=== PATIENT | female | born 1940 | race Caucasian/White ===

== ENCOUNTER 2016-11-25 06:26 | Emergency (ER) | payer MEDICARE, OTHER ==
[2016-11-25 06:32] VITALS: BP 150/99
--- NOTE | 2016-11-25 06:40 | EDM.PDOC ---
<Pasquale Hernandez - Last Filed: 11/25/16 06:50> ED HPI GENERAL MEDICAL PROBLEM - General Chief Complaint: Respiratory Problem Stated Complaint: IN BY AMBULANCE Time Seen by Provider: 11/25/16 06:35 Source of Information: Reports: Patient History Limitations: Reports: No Limitations - History of Present Illness INITIAL COMMENTS - FREE TEXT/NARRATIVE: sudden onset SOB @ midnight was awake at the time riding in train heading to [place]. denies prior h/o, no SD/COPD/ASTHMA. denies CP, no pain anywhere just SOB. takes BP Rx Headache Pain Score (Numeric/FACES): 8 - Related Data Allergies Allergy/AdvReac Type Severity Reaction Status Date / Time cefaclor [From [facility]] Allergy Rash Verified 11/25/16 06:36 codeine Allergy Vomiting Verified 11/25/16 06:36 Penicillins Allergy Rash Verified 11/25/16 06:36 Home Meds: Home Meds Aspirin [Ecotrin] 81 mg PO DAILY 11/25/16 [History] Calcium Carbonate [Calcium] 1,200 mg PO DAILY 11/25/16 [History] Cholecalciferol (Vitamin D3) [Vitamin D] 5,000 unit PO DAILY 11/25/16 [History] Fesoterodine Fumarate [Toviaz] 4 mg PO DAILY 11/25/16 [History] Fexofenadine [Ynes] 60 mg PO DAILY PRN 11/25/16 [History] Lisinopril [Zestril] 10 mg PO QPM 11/25/16 [History] Lisinopril [Zestril] 20 mg PO QAM 11/25/16 [History] Lutein/Minerals/Vit A,C & E [Ocuvite] 1 each PO DAILY 11/25/16 [History] Melatonin 10 mg PO BEDTIME 11/25/16 [History] Metoprolol Succinate 200 mg PO DAILY 11/25/16 [History] amLODIPine Besylate [Norvasc] 10 mg PO BEDTIME 11/25/16 [History] atorvaSTATin [Lipitor] 10 mg PO DAILY 11/25/16 [History] ED ROS GENERAL - Review of Systems Review Of Systems: ROS reveals no pertinent complaints other than HPI. ED EXAM, GENERAL - Physical Exam Exam: See Below Exam Limited By: No Limitations General Appearance: Alert, WD/WN, Anxious, Mild Distress Ears: Hearing Grossly Normal Throat/Mouth: Normal Voice, No Airway Compromise Head: Atraumatic Neck: Non-Tender, Full Range of Motion Respiratory/Chest: Lungs Clear, Accessory Muscle Use, Other (bilat subcostal) Cardiovascular: Regular Rate, Rhythm GI/Abdominal: Soft, Non-Tender Extremities: Pedal Edema, Other (1+ bilat) Neurological: Alert, Oriented, Normal Cognition, Normal Gait, No Motor/Sensory Deficits Psychiatric: Anxious Skin Exam: Warm, Dry Lymphatic: No Adenopathy Course - Vital Signs Last Recorded V/S: Last Vital Signs Temp 36.6 C 11/25/16 06:30 Pulse 84 11/25/16 06:30 Resp 28 H 11/25/16 06:30 BP 150/99 H 11/25/16 06:30 Pulse Ox 90 L 11/25/16 06:30 - Orders/Labs/Meds Orders: Active Orders 24 hr Category Date Time Status EKG Documentation Completion [RC] STAT Care 11/25/16 06:36 Active Chest 1V Frontal [CR] Urgent Exams 11/25/16 06:36 Ordered Chest w Cont [CT] Urgent Exams 11/25/16 06:45 Ordered Head wo Cont [CT] Urgent Exams 11/25/16 07:22 Ordered CULTURE BLOOD [BC] Stat Lab 11/25/16 08:01 Received CULTURE BLOOD [BC] Stat Lab 11/25/16 08:12 Results DRUG SCREEN URINE BIORAD [URCHEM] Stat Lab 11/25/16 07:32 Uncollected URINALYSIS W/MICROSCOPIC [UA W/MICROSCOPIC] [URIN] Stat Lab 11/25/16 07:31 Uncollected Levofloxacin/Dextrose 5%-Water [Levaquin in D5W 500 MG/ Med 11/25/16 08:29 Active 100 ML] 500 mg Premix Bag 1 bag IV ONETIME Blood Culture x2 Reflex Set [OM.PC] Stat Oth 11/25/16 07:43 Ordered Medication Orders Levofloxacin/Dextrose 500 mg/ (Premix) 100 mls @ 100 mls/hr IV ONETIME ONE Stop: 11/25/16 09:28 Last Admin: 11/25/16 08:47 Dose: 100 mls/hr Labs: Laboratory Tests 11/25/16 11/25/16 11/25/16 Range/Units 06:36 06:36 06:36 WBC 14.6 H (5.0-10.0) 10^3/uL RBC 4.83 (4.2-5.4) 10^6/uL Hgb 14.9 (12.0-16.0) g/dL Hct 44.3 (37.0-47.0) % MCV 91.7 (80-100) fL MCH 30.8 (27.0-34.0) pg MCHC 33.6 (33.0-35.0) g/dL Plt Count 238 (150-450) 10^3/uL Neut % (Auto) 86.5 H (42.2-75.2) % Lymph % (Auto) 6.5 L (20.5-50.1) % [place] % (Auto) 6.4 (2-8) % Eos % (Auto) 0.4 L (1.0-3.0) % Baso % (Auto) 0.2 (0.0-1.0) % PT (9.0-12.0) SEC INR (0.9-1.2) APTT (22.0-34.0) SEC D-Dimer, Quantitative 161 (0-400) ng/mL Sodium 134 L (135-145) mmol/L Potassium 3.7 (3.6-5.0) mmol/L Chloride 101 (101-111) mmol/L Carbon Dioxide 23.0 (21.0-31.0) mmol/L Anion Gap 13.7 BUN 11 (7-18) mg/dL Creatinine 0.6 (0.6-1.3) mg/dL Est Cr Clr Drug Dosing 79.21 mL/min Estimated GFR (MDRD) > 60 BUN/Creatinine Ratio 18.33 Glucose 146 H (74-105) mg/dL Lactic Acid (0.5-2.2) mmol/L Calcium 8.6 (8.4-10.2) mg/dl Total Bilirubin 1.1 H (0.2-1.0) mg/dL AST 72 H (10-42) IU/L ALT 92 H (10-60) IU/L Alkaline Phosphatase 103 (42-121) IU/L Troponin I < 0.02 (0.00-0.02) ng/ml B-Natriuretic Peptide 587 H (0-100) pg/ml Total Protein 7.0 (6.7-8.2) g/dl Albumin 4.2 (3.2-5.5) g/dl Globulin 2.8 Albumin/Globulin Ratio 1.50 Amylase (28-100) U/L Lipase (22-51) U/L TSH, Ultra Sensitive (0.35-7.0) uIu/mL Salicylates Acetaminophen Ethyl Alcohol mg/dL 11/25/16 11/25/16 11/25/16 Range/Units 06:36 06:36 06:36 WBC (5.0-10.0) 10^3/uL RBC (4.2-5.4) 10^6/uL Hgb (12.0-16.0) g/dL Hct (37.0-47.0) % MCV (80-100) fL MCH (27.0-34.0) pg MCHC (33.0-35.0) g/dL Plt Count (150-450) 10^3/uL Neut % (Auto) (42.2-75.2) % Lymph % (Auto) (20.5-50.1) % [place] % (Auto) (2-8) % Eos % (Auto) (1.0-3.0) % Baso % (Auto) (0.0-1.0) % PT 9.9 (9.0-12.0) SEC INR 1.0 (0.9-1.2) APTT 27.5 (22.0-34.0) SEC D-Dimer, Quantitative (0-400) ng/mL Sodium (135-145) mmol/L Potassium (3.6-5.0) mmol/L Chloride (101-111) mmol/L Carbon Dioxide (21.0-31.0) mmol/L Anion Gap BUN (7-18) mg/dL Creatinine (0.6-1.3) mg/dL Est Cr Clr Drug Dosing mL/min Estimated GFR (MDRD) BUN/Creatinine Ratio Glucose (74-105) mg/dL Lactic Acid 1.3 (0.5-2.2) mmol/L Calcium (8.4-10.2) mg/dl Total Bilirubin (0.2-1.0) mg/dL AST (10-42) IU/L ALT (10-60) IU/L Alkaline Phosphatase (42-121) IU/L Troponin I (0.00-0.02) ng/ml B-Natriuretic Peptide (0-100) pg/ml Total Protein (6.7-8.2) g/dl Albumin (3.2-5.5) g/dl Globulin Albumin/Globulin Ratio Amylase 57 (28-100) U/L Lipase 22 (22-51) U/L TSH, Ultra Sensitive (0.35-7.0) uIu/mL Salicylates < 4 Acetaminophen < 10 Ethyl Alcohol 5 mg/dL 11/25/16 Range/Units 06:36 WBC (5.0-10.0) 10^3/uL RBC (4.2-5.4) 10^6/uL Hgb (12.0-16.0) g/dL Hct (37.0-47.0) % MCV (80-100) fL MCH (27.0-34.0) pg MCHC (33.0-35.0) g/dL Plt Count (150-450) 10^3/uL Neut % (Auto) (42.2-75.2) % Lymph % (Auto) (20.5-50.1) % [place] % (Auto) (2-8) % Eos % (Auto) (1.0-3.0) % Baso % (Auto) (0.0-1.0) % PT (9.0-12.0) SEC INR (0.9-1.2) APTT (22.0-34.0) SEC D-Dimer, Quantitative (0-400) ng/mL Sodium (135-145) mmol/L Potassium (3.6-5.0) mmol/L Chloride (101-111) mmol/L Carbon Dioxide (21.0-31.0) mmol/L Anion Gap BUN (7-18) mg/dL Creatinine (0.6-1.3) mg/dL Est Cr Clr Drug Dosing mL/min Estimated GFR (MDRD) BUN/Creatinine Ratio Glucose (74-105) mg/dL Lactic Acid (0.5-2.2) mmol/L Calcium (8.4-10.2) mg/dl Total Bilirubin (0.2-1.0) mg/dL AST (10-42) IU/L ALT (10-60) IU/L Alkaline Phosphatase (42-121) IU/L Troponin I (0.00-0.02) ng/ml B-Natriuretic Peptide (0-100) pg/ml Total Protein (6.7-8.2) g/dl Albumin (3.2-5.5) g/dl Globulin Albumin/Globulin Ratio Amylase (28-100) U/L Lipase (22-51) U/L TSH, Ultra Sensitive 3.14 (0.35-7.0) uIu/mL Salicylates Acetaminophen Ethyl Alcohol mg/dL Meds: Medications Generic Name Dose Route Start Last Admin Trade Name Freq PRN Reason Stop Dose Admin Levofloxacin/Dextrose 500 mg/ 100 mls @ 100 mls/hr 11/25/16 08:29 11/25/16 08 :47 Premix IV 11/25/16 09:28 100 mls/hr ONETIME ONE Administration Discontinued Medications Generic Name Dose Route Start Last Admin Trade Name Freq PRN Reason Stop Dose Admin Ibuprofen 600 mg 11/25/16 06:57 11/25/16 07:59 Motrin PO 11/25/16 06:58 600 mg ONETIME ONE Administration Iopamidol 100 ml 11/25/16 06:47 Isovue-370 (76%) IVPUSH 11/25/16 06:48 ONETIME ONE Ondansetron HCl 4 mg 11/25/16 07:22 11/25/16 07:25 Zofran IV 11/25/16 07:23 4 mg ONETIME ONE Administration Departure - Departure Disposition: Against Medical Advice 07 Clinical Impression: Pneumonia, Elevated liver function tests - Discharge Information Forms: ED Department Discharge Additional Instructions: Your evaluation today has shown compromise of your lungs and you have low oxygenation, you have pneumonia requiring admission to the hospital. You have refused admission to the hospital. You are at risk for progressive hypoxia, respiratory compromise, respiratory arrest, cardiac arrest, and disability. You have been given an antibiotic intravenously Levaquin 500mg one time dose in the emergency department, and a presciption for Levaquin 500mg one pill a day for seven days to begin tomorrow. Advise you seek emergent medical attention if you are progressively short of breath, having chest pain, or concerns. Advise you see your provider as soon as possible. Your liver function tests were elevated on lab today. This may be due to the Lipitor you are taking. Advise discussing with your provider this issue as soon as possible to consider discontinuing this medicine and following your liver functions over time. - My Orders Last 24 Hours: My Active Orders 11/25/16 07:22 Head wo Cont [CT] Urgent 11/25/16 07:31 URINALYSIS W/MICROSCOPIC [UA W/MICROSCOPIC] [URIN] Stat 11/25/16 07:32 DRUG SCREEN URINE BIORAD [URCHEM] Stat 11/25/16 07:43 Blood Culture x2 Reflex Set [OM.PC] Stat 11/25/16 08:01 CULTURE BLOOD [BC] Stat 11/25/16 08:12 CULTURE BLOOD [BC] Stat 11/25/16 08:29 Levofloxacin/Dextrose 5%-Water [Levaquin in D5W 500 MG/100 ML] 500 mg Premix Bag 1 bag IV ONETIME - Assessment/Plan Last 24 Hours: My Active Orders 11/25/16 07:22 Head wo Cont [CT] Urgent 11/25/16 07:31 URINALYSIS W/MICROSCOPIC [UA W/MICROSCOPIC] [URIN] Stat 11/25/16 07:32 DRUG SCREEN URINE BIORAD [URCHEM] Stat 11/25/16 07:43 Blood Culture x2 Reflex Set [OM.PC] Stat 11/25/16 08:01 CULTURE BLOOD [BC] Stat 11/25/16 08:12 CULTURE BLOOD [BC] Stat 11/25/16 08:29 Levofloxacin/Dextrose 5%-Water [Levaquin in D5W 500 MG/100 ML] 500 mg Premix Bag 1 bag IV ONETIME <Saida Amaya - Last Filed: 11/25/16 08:54> EKG INTERPRETATION EKG Date: 11/25/16 EKG Interpretation Comments: sinus rate 76, atrial premature complexes, prob left atrial enlargement, borderline right axis deviation. No prior EKG to compare. Course - Vital Signs Text/Narrative:: Evaluated pt on entrance to ER for day shift. She has no lower respiratory wheezing. She has some slight upper resp wheeze with pause in speaking, but has not difficulty speaking, speaks in full sentences and has no stridor. Discussed with Dr. Rivas, hospitalist. Xray shows pneumonitis vs. pneumonia, ground glass appearance of lungs. CTChest shows no pulmonary thrombosis, prominent lower lungs and interlobular septal thickening,patchy mild pulmonary ground glas opacities. Superieor and ant segment liular subsegmental atelecasis. Heterogeneous low attenuating 12.9 mm noncalcified pulmonary nodule lat basilar seg of the right lower lobe, possibly containing intralesinal adipose measuring -29 Hounsfield units. Minimal left pleural effusion, small right pleural effusion. Advised did head Ct pt is elderly and seemed very needy as far as repeatedly asking for something for headache/food/water and did not want to be left alone. She is following commands, speaking in full sentences and answers questions appropriately. She has no facial droop and no focal ext weakness. She had no lower ext edema. She had a low O2 sat on entrance to ER of 84 and is on 2L per nc with sats 90 - 92%. Dr. Rivas advised admit, give Levaquin IV. Discussed results with pt and advise inpatient admission. She refuses to be admitted. She is taking train to [place] vacation and refuses to alter her plans. Advised she is hypoxic without oxygen, her lungs are compromised significantly on xray and ct and not providing adequate oxygenation/ventilation. Advised she is at risk for progressive hypoxia, respiratory compromise. Advised she is at risk for and disability and the best advise is to be admitted until her lung function improves. She is adament she will not be admitted. litigation coordinator did talk with pt and she still refuses. Will give first dose of antibiotic in ER and a prescription for Levaquin 500mg one pill once a day for 7 days. Advised see a healthcare provider lamar. If she has concerns progressive shortness of breath, etc. present to nearest emergency facility. She has elevated liver function tests, no prior studies or labs available. Advise she consider discontinuing her Lipitor and follow with her provider to continue to moniter liver functions. Departure - Departure Time of Disposition: 08:48 Condition: good
[2016-11-25] MEDS ORDERED: Iopamidol 755 Mg/ML 100 ML Bottle IVPUSH ONE (06:47)
[2016-11-25] MEDS ORDERED: Ibuprofen 600 MG Tab PO ONE (06:57)
[2016-11-25 07:03] LABS: CHLORIDE,CL 101 mmol/L (101-111); SODIUM,NA 134 mmol/L (135-145)
[2016-11-25] MEDS ORDERED: Ondansetron 4 MG/2 ML SDV IV ONE (07:22)
[2016-11-25 08:10] LABS: ACETAMINOPHEN < 10
[2016-11-25] MEDS ORDERED: Levofloxacin/Dextrose 5%-Water 500 MG in Premix Bag 1 BAG IV ONE (08:29)
--- NOTE | 2016-11-28 10:51 | EKG ---
11/25/2016- STEFANY RANKIN - EKG per my reading showed sinus rhythm with PACs. [facility] /[id number]
== END 2016-11-25 10:06 | disposition left against medical advice (07) ==
LOC: DL.ED 06:26
DX: J18.9 Pneumonia, unspecified organism (principal); R79.89 Other specified abnormal findings of blood chemistry; Z88.8 Allergy status to other drugs, medicaments and biological substances; Z88.5 Allergy status to narcotic agent; Z88.0 Allergy status to penicillin; Z79.899 Other long term (current) drug therapy; Z79.82 Long term (current) use of aspirin
CPT/HCPCS: 36415; 70450; 71010; 71260; 80053; 80305; 81001; 82150; 83605; 83690; 83880; 84443; 84484; 85025; 85379; 85610; 85730; 87040; 93005; 93010; 96365; 99285; A9270; G0480; J1956; J2405; Q9967; 99284